=== PATIENT | female | born 1945 | race Caucasian/White ===

== ENCOUNTER 2021-07-04 05:57 | Day surgery (SDC) | payer OTHER ==
[2021-06-27 14:27] VITALS: BMI 34.9
[2021-07-04] MEDS ORDERED: TETRACAINE 0.5% OPHTH SOLN 2 ML BOTTLE ONE (07:15)
[2021-07-04] MEDS ORDERED: POVIDONE-IODINE 5% OPHTHALMIC PREP 30 ML SOLUTION ONE (07:15)
[2021-07-04] MEDS ORDERED: LIDOCAINE 1%/EPI 1:100000 (20 ML MULTI DOSE VIAL) ONE (07:15)
[2021-07-04] MEDS ORDERED: BUPIVACAINE HCL 50 ML ONE (07:15)
[2021-07-04] MEDS ORDERED: ERYTHROMYCIN 0.5% OPHTHALMIC OINTMENT 3.5 GM TUBE ONE (07:15)
[2021-07-04] MEDS ORDERED: ceFAZolin SODIUM 1 GM VIAL ONE (07:15)
[2021-07-04] MEDS ORDERED: PROPOFOL 20 ML ONE ×3 (07:44)
[2021-07-04] MEDS ORDERED: SUCCINYLCHOLINE CHLORIDE 200 MG/10 ML SYRINGE ONE (07:44)
[2021-07-04] MEDS ORDERED: MIDAZOLAM HCL 2 MG/2 ML SINGLE DOSE VIAL ONE (07:45)
[2021-07-04] MEDS ORDERED: LIDOCAINE HCL 2% JELLY (5 ML/TUBE) ONE (07:46)
[2021-07-04] MEDS ORDERED: LIDOCAINE HCL 2% 100 MG/5 ML DISP.SYRIN ONE (07:51)
[2021-07-04] MEDS ORDERED: oxyCODONE HCL 5 MG TABLET PO PRN (10:39)
[2021-07-04] MEDS ORDERED: ONDANSETRON 4 MG/2 ML VIAL IVPUSH PRN (10:39)
[2021-07-04] MEDS ORDERED: ACETAMINOPHEN 325 MG TABLET (FP) PO PRN (10:39)
[2021-07-04 11:29] VITALS: PULSE 86; TEMP 98
[2021-07-04 11:57] VITALS: BP 141/78
== END 2021-07-04 13:00 | disposition home or self-care (01) ==
LOC: FASU 05:57
PROVIDERS: ATTEND Ophthalmology
PROC: 0JB10ZZ Excision of Face Subcutaneous Tissue and Fascia, Open Approach (ICD-10-PCS; 2021-07-04)
PROC: 0KX10ZZ Transfer Facial Muscle, Open Approach (ICD-10-PCS; 2021-07-04)
PROC: 0JX10ZC Transfer Face Subcutaneous Tissue and Fascia with Skin, Subcutaneous Tissue and Fascia, Open Approach (ICD-10-PCS; principal; 2021-07-04 08:30)
DX: C44.1092 Unspecified malignant neoplasm of skin of left lower eyelid, including canthus (principal)
CPT/HCPCS: 94760